=== PATIENT | female | born 1945 | race Caucasian/White ===

== ENCOUNTER 2018-08-14 01:12 | Emergency (ER) | payer MEDICARE, MEDICAID ==
[~2018-08-14] VITALS: Ht 167.6 cm; Wt 58.0 kg
[~2018-08-14 01:12] MED LIST: ALBU05; ATROV; FLUO-123; GABA-529; LORA1TAB; RISP1TAB26; TRAZ-213; WARF1TAB85; ZOLP10TA6
[2018-08-14] MEDS ORDERED: KETOROLAC 60MG/2ML VIAL IM ONE (02:30)
[2018-08-14 04:19] LABS: CLARITY URINE CLEAR (CLEAR); COLOR URINE YELLOW (YELLOW); KETONES URINE NEGATIVE (NEGATIVE); LEUKOCYTE ESTERASE URINE NEGATIVE (NEGATIVE); NITRITE URINE NEGATIVE (NEGATIVE); OCCULT BLOOD URINE NEGATIVE (NEGATIVE); PROTEIN URINE NEGATIVE (NEGATIVE); SPECIFIC GRAVITY URINE 1.008 (1.005-1.030)
[2018-08-14 04:58] VITALS: BP 138/94
== END 2018-08-14 04:59 | disposition home or self-care (01) ==
LOC: ER 01:12
DX: M54.5 Low back pain (principal); I11.9 Hypertensive heart disease without heart failure; F17.210 Nicotine dependence, cigarettes, uncomplicated; Z90.49 Acquired absence of other specified parts of digestive tract; Z79.01 Long term (current) use of anticoagulants
CPT/HCPCS: 72100; 81003; 96372; 99284; J1885